=== PATIENT | male | born 1995 | race Caucasian/White ===

== ENCOUNTER → 2021-03-22 | Outpatient (CLI) | payer SELFPAY ==
[2021-03-26 05:09] LABS: HSV-1 DNA Negative (Negative); HSV-2 DNA Positive (Negative)
== END ==
LOC: LAB SHORT 11:23
PROVIDERS: Physician Assistant
DX: N34.1 Nonspecific urethritis (principal)
CPT/HCPCS: 87529

== ENCOUNTER 2023-11-13 21:26 | Emergency (ER) | payer BC ==
[~2023-11-13] VITALS: Ht 188 cm; Wt 125.6 kg
[2023-11-13 21:38] VITALS: BP 150/98
== END 2023-11-13 22:30 | disposition home or self-care (01) ==
LOC: ER 21:26
DX: R07.9 Chest pain, unspecified (principal)
CPT/HCPCS: 93005; 93010; 99284-25